=== PATIENT | female | born 1960 ===

== ENCOUNTER 2017-04-22 07:38 | Day surgery (SDC) | payer BC ==
[2016-01-16 21:10] VITALS: BMI 23.2
[2017-04-22] MEDS ORDERED: Propofol 10 mg/ml Inj (20 ML) ONE (09:31)
[2017-04-22] MEDS ORDERED: Midazolam 2 MG/2 ML VIAL ONE (09:31)
[2017-04-22] MEDS ORDERED: Lactated Ringer's 1,000 ML IV ONE (09:37)
[2017-04-22] MEDS ORDERED: Lidocaine Hydrochloride 5 ML INJ ONE (10:11)
--- NOTE | 2017-04-22 11:20 | PCM.SURG1 ---
Surgeon's Initial Post Op Note - Surgeon's Notes Surgeon: Sagrario Foster MD Motorcycle Service Technician: none Type of Anesthesia: General LMA Pre-Operative Diagnosis: postmenopusal bleeding , cervicla polyp, hx of breast cancer on tamoifen Operative Findings: anteverted uteurs 6-8 weeks, arcuate uteurs, right [place] myoam near right sosai, 1.5cm polypoid tissues at cervical os, good hemosstais. Post-Operative Diagnosis: postmenopsaual bleeding, cervical polyp, submucosal myoma, Operation Performed: Hysteroscopic myomecotmy, fractional dilation and currettage Specimen/Specimens Removed: cervical polyp, endocervical currettins, enodmetiral cuttetings, submcuosal myoma Estimated Blood Loss: EBL {In ML}: 10 Blood Products Given: N/A Drains Used: No Drains Post-Op Condition: Good Date of Surgery/Procedure: 04/22/17 Time of Surgery/Procedure: 09:30
[2017-04-22 13:03] VITALS: BP 109/74; PULSE 62; RESP 20; TEMP 98; O2SAT 100
--- NOTE | 2017-04-22 15:53 | OP ---
PROCEDURE DATE: 04/22/2017 PREOPERATIVE DIAGNOSES: Postmenopausal bleeding; cervical polyp; history of breast cancer, on tamoxifen. POSTOPERATIVE DIAGNOSES: Post menopausal bleeding, cervical polyp and submucosal myoma. OPERATION PERFORMED: Hysteroscopic myomectomy, fractional dilation and curettage and cervical polypectomy. SURGEON: Dr. Sagrario Foster. COPY PREPARER: None. TYPE OF ANESTHESIA: General LMA. OPERATIVE FINDINGS: A 6 to 8 week's size anteverted uterus, arcuate uterus, bilateral ostia visualized, cervical polyp noted about 1.5 cm protruding from cervical os removed, also submucosal myoma noted to be at 1 cm in close approximation to the right cornea entrance resected completely. Good hemostasis. ESTIMATED BLOOD LOSS: 10 mL. BLOOD PRODUCTS: None. COMPLICATIONS: None. SPECIMENS REMOVED: Endocervical curetting, cervical polyp, endometrial curetting and submucosal myoma. DESCRIPTION OF PROCEDURE: The patient was taken to the operating room where she was given general anesthesia and once it was found to be adequate, the patient was placed on the operating table in the dorsal lithotomy position with legs spread using stirrups. The patient was then prepped and draped in the usual sterile fashion. A time-out confirmed correct patient and correct procedure. Bimanual exam was performed with above-mentioned findings. The red rubber catheter was inserted into the urethra to drain the bladder. Following this, a cervical polyp was then noted as the cervical os. A single tooth tenaculum was placed on the anterior lip of the cervix. Endocervical curettings were obtained with a Kev[place] curette and sent to [facility] on [facility]. The uterus was then sounded to 7 cm. Following this, the cervix was sequentially dilated. The cervical polyp was then carefully removed using the polyp forceps. There was good hemostasis noted. The hysteroscope was then advanced under direct visualization using normal saline as distention media. There were bilateral ostia visualized and arcuate shape noted. There was a myoma-type tissue noted within 1 cm entirely inside the cavity 100% close to the right cornea. The MyoSure device was then inserted under direct visualization. The mass was carefully resected. There was good hemostasis noted. Following this, the hysteroscope was then removed and endometrial curettage was done 360 degrees until a gritty texture was noted and the specimen was labeled as endometrial curettings. All instruments were removed. There was good hemostasis at the tenaculum puncture site. At the end of the procedure, all needle, sponge and instrument counts were noted and correct x2. The patient tolerated the procedure well and was transferred to the recovery room in stable condition. Sagrario Foster MD
== END 2017-04-22 13:00 | disposition home or self-care (01) ==
LOC: C.SDS 07:38
PROVIDERS: ATTEND Obstetrics & Gynecology
DX: N84.1 Polyp of cervix uteri (principal); N95.0 Postmenopausal bleeding; D25.0 Submucous leiomyoma of uterus
CPT/HCPCS: 58558; 58561; 88305; J1100; J1885; J2250; J2405; J2704; J3010; J7120